=== PATIENT | female | born 1975 | race Two or more races ===

== ENCOUNTER 2019-08-23 22:02 | Emergency (ER) | payer SELFPAY ==
[~2019-08-23] VITALS: Ht 154.9 cm; Wt 63.6 kg
[2019-08-23 22:24] VITALS: Ht 154.9 cm; Wt 63.6 kg
[2019-08-23] MEDS ORDERED: ZOFRAN ODT4 MG/UDTAB PO (23:07)
[2019-08-23 23:10] VITALS: BP 114/72
== END 2019-08-23 23:11 | disposition home or self-care (01) ==
LOC: D.ER 22:02
DX: U07.1 COVID-19 (principal); R51 Headache; R11.0 Nausea